=== PATIENT | male | born 1960 | race Hispanic/Latino ===

== ENCOUNTER 2022-12-19 06:39 | Inpatient (IN) | payer MEDICAID, SELFPAY ==
[2022-12-19] VITALS (7 sets, daily range): BP systolic 147–168; BP diastolic 79–88; PULSE 71–94; RESP 14–18; TEMP 36.2–37.1; O2SAT 94–98; BMI 29.2; BMI 27.6
--- NOTE | 2022-12-19 07:15 | CT_ITS ---
STUDY: CT ABDOMEN AND PELVIS WITH CONTRAST REASON FOR EXAM: Male, 62 years old. Abdominal pain. Difficulty with urination. RADIATION DOSAGE (If Supplied By Facility): CTDIvol = ( 14.61 ) mGy, DLP = ( 1025.83 ) mGycm TECHNIQUE: Transaxial images were obtained from the dome of the diaphragm to the symphysis pubis without oral contrast. IV 100mL Isovue-370 was administered. Sagittal and coronal images were reconstructed. Individualized dose optimization techniques were used for this CT. COMPARISON: None. FINDINGS: Minimal degree of bibasilar atelectasis. The visualized portions of the heart are within normal limits. There is a 3.7 cm x 3.5 cm wedge-shaped area of enhancement in the posterior lateral aspect of the right lobe of the liver. A similar appearing abnormality is seen in the inferior lateral portion of the liver as well as in the most inferior portion. Correlation with the ultrasound is recommended for further evaluation. Tiny cyst in the anterior aspect of the left lobe of the liver. Normal gallbladder and extrahepatic biliary system. Normal spleen. Normal pancreas. Normal bilateral adrenal glands. Normal right kidney. Normal left kidney. Normal visualized stomach. Normal small intestine. There is diverticulosis, with thickening of the colon wall, and pericolonic inflammation changes consistent with acute diverticulitis. There is a 1.9 cm x 2 cm circumscribed fluid collection in the mesenteric side of the sigmoid mesentery. This may represent a walled off fluid collection/abscess. The appendix is visualized and appears normal. There is scattered atherosclerotic calcification of the abdominal aorta, without a demonstrated aneurysm. Normal inferior vena cava. Normal retroperitoneum. Diffuse bladder wall thickening. Heterogeneous enlargement of the prostate with indentation of the bladder base. The prostate measures 4.6 cm x 5.5 cm. Bilateral inguinal hernias containing fat more prominent on the left side. There are degenerative changes of the visualized lumbar spine. CT/Abdomen/Pelvis W IV Cont ONLY IMPRESSION: Enhancing lesions in the right lobe of the liver as described. Correlation with ultrasound is recommended. Sigmoid diverticulitis with the walled off fluid collection/abscess along the mesenteric aspect of the sigmoid mesentery. Inflammatory changes are seen in the pelvis. Diffuse thickening of the bladder wall. Prostatic enlargement with indentation of the bladder base. Bilateral inguinal hernias more prominent on the left side. Electronically Signed: Tai Barbosa MD at 8:51 EDT ,
--- NOTE | 2022-12-19 07:16 | EDS_ITS ---
HPI HPI - GI History of Present Illness Chief Complaint: Abd Pain Informant: patient and friend Narrative Narrative: History is through patient and through an cyber software engineer who is a friend of his and who he is happy having do the interpretation. Patient is overall healthy. He is on no meds. He has no allergies. He has no prior surgeries. It sounds like since Friday he has had some problems moving the bowels and problems urinating. Is not clear exactly which one started. He has some discomfort or pressure down in the pelvis. But no nausea or vomiting and he still able to eat. He is urinating but is just small amounts. It did burn somewhat but burned or hurt inside not outside. No discharge. He thinks he had a fever last night subjectively but was not able to measure it. He has never had this before. No history of diverticulitis. No traumas. No known exposures. PFSH PFS Medical History no medical history Home Medications NK 12/19/22 [History Last Taken Unknown] Allergy/AdvReac Type Severity Reaction Status Date / Time No Known Allergies Allergy Verified 12/19/22 06:44 Social History Smoking Status: Never smoker ROS ROS ED ROS Narrative A complete review of systems was performed and is negative except as documented in the history of present illness. Some specific details below. Constitutional: No recent measured fever but he did feel feverish last night. EYE: No visual complaints or pain. ENT: No difficulty swallowing. No swelling. No pain. No GERD. CV: No chest pain or palpitations. Respiratory: No dyspnea. No hemoptysis. No difficulty taking breaths. GI: Please see history of present illness. : Some dysuria and some difficulty passing urine. But he has never had this before. He does not have nighttime urination normally. Musculoskeletal: No recent trauma. No pains. Skin: No rash. Nondiaphoretic. Neuro: No weakness or numbness. Endocrine: No polyuria or polydipsia. EXAM Physical Exam Narrative Exam Narrative: CONSTITUTIONAL: Patient is nontoxic in appearance. The patient looks comfortable. HEENT: No notable trauma. Mucous membranes are still moist. No indication of pain with swallowing. EYES: No conjunctival injection. No proptosis. CARDIOVASCULAR: Regular rate. Regular rhythm. No notable murmur. No JVD. RESPIRATORY: No respiratory distress. Breathing is unlabored. No wheezes. No rhonchi. No rales. No pain with a deep breath. GASTROINTESTINAL: Not distended. Bowel sounds are normal. He feels some pressure with palpation of the lower abdomen. I cannot locate this left or right. But there is no rebound or guarding. I do not feel necessarily an enl arged bladder on exam. GENITOURINARY: No tenderness over the bladder. No CVA tenderness is felt on either side. MUSCULOSKELETAL: Atraumatic. No peripheral edema. No cord. No tenderness along the deep venous system. No asymmetry. NEUROLOGICAL: Patient is alert and appropriate. No focal deficit noted. SKIN: No noted rashes. No diaphoresis. PSYCHIATRIC: Patient is calm. Mood is appropriate. Const Vital Signs: 12/19/22 06:41 Temperature 97.1 F L Temperature Source Temporal Pulse Rate 94 Respiratory Rate 18 Blood Pressure 168/85 H Blood Pressure Mean 112 Pulse Ox 98 Oxygen Delivery Method Room Air MDM MDM MDM Narrative Medical decision making narrative: Patient could have urinary retention. But this could also represent UTI or intra-abdominal infection such as diverticulitis. I am concerned with his feeling of being feverish last night. I will do comprehensive work-up including blood work urine and a CT. This will look for kidney stones diverticulitis and large bladder or other findings. Patient CBC shows no white count at 17.9. But hemoglobin and platelets are normal. Patient's electrolytes showed minimally low sodium otherwise overall normal. Glucose was just slightly up at 117 that can followed. Patient's urinalysis shows no sign of infection. My independent interpretation of the patient's CT of the abdomen and pelvis with IV contrast shows some inflammatory changes down the lobe mostly centered around the sigmoid area mostly consistent with diverticulitis. There are multiple air- filled diverticula but no definite perforation. Question small abscess. Bladder does not look enlarged. Final reading of his CT does show a 1.9 x 2 cm abscess more on the mesenteric side. I discussed the case with surgeon, Dr. Alvarado. He came down and saw the patient. Patient is given Zosyn here. With his significant inflammation, high white count, abscess he will be brought in the hospital for treatment. This area is small and not in a great place for percutaneous drainage. Hopefully he will respond to antibiotics. I explained this to the patient again through the cyber software engineer. I also printed out a discharge instruction sheet regarding diverticulitis so he can read this. I explained that this is not the full description of his illness but does have some similar features. Lab Data Attestation: I reviewed the patient's lab results. Labs: Laboratory Results - last 24 hr 12/19/22 12/19/22 06:55 07:30 WBC 17.9 H RBC 4.87 Hgb 15.9 Hct 46.5 MCV 95.5 H MCH 32.6 H MCHC 34.2 RDW Std Deviation 42.5 RDW Coeff of Larissa 12.0 Plt Count 346 MPV 10.3 Immature Gran % (Auto) 0.600 Neut % (Auto) 75.6 H Lymph % (Auto) 13.5 L [place] % (Auto) 9.5 Eos % (Auto) 0.5 Baso % (Auto) 0.3 Absolute Neuts (auto) 13.5 H Absolute Lymphs (auto) 2.42 Nucleated RBC % 0 Differential Comment COMMENT Diff Path Review May foll Sodium 135 L Potassium 4.1 Chloride 105 Carbon Dioxide 26.0 Anion Gap 4 L BUN 12 Creatinine 0.76 Estim Creat Clear Calc 94.22 Est GFR (MDRD) Af Amer 135 Est GFR (MDRD) Non-Af 111 BUN/Creatinine Ratio 15.9 Glucose 117 H Calcium 9.1 Urine Color Yellow Urine Clarity Clear Urine pH 6.0 Ur Specific [place] 1.015 Urine Protein 15 H Urine Glucose (UA) Normal Urine Ketones Negative Urine Occult Blood Negative Urine Nitrite Negative Urine Bilirubin Negative Urine Urobilinogen Normal Ur Leukocyte Esterase 25 H Urine RBC 0 SEEN Urine WBC 0 SEEN Ur Squamous Epith Cells 0 SEEN Urine Bacteria 0 SEEN Urine Mucus 0 SEEN Radiography Diagnostic Testing: Clinical Impression(s) from Imaging Studies Abdomen/Pelvis CT 12/19/22 07:15 IMPRESSION: Enhancing lesions in the right lobe of the liver as described. Correlation with ultrasound is recommended. Sigmoid diverticulitis with the walled off fluid collection/abscess along the mesenteric aspect of the sigmoid mesentery. Inflammatory changes are seen in the pelvis. Diffuse thickening of the bladder wall. Prostatic enlargement with indentation of the bladder base. Bilateral inguinal hernias more prominent on the left side. Electronically Signed: Tai Barbosa MD at 8:51 EDT , Discharge Plan Dx/Rx/DC Orders Clinical Impression: Diverticulitis, Leukocytosis, Colonic diverticular abscess Disposition Disposition: Acute Care Hospital [facility]
[2022-12-19] MEDS: 0.9% Normal Saline (1000mL) 500 ML 1000 ML IV (07:37)
[2022-12-19 07:41] LABS: Bacteria 0 SEEN /hpf (None Seen); Mucous, Urine 0 SEEN /hpf (<or=2+); Red Blood Cells-Urine 0 SEEN /hpf (0-5); Squamous Epithelial Cells - UA 0 SEEN /hpf (0-5); White Blood Cells 0 SEEN /hpf (0-5)
[2022-12-19 07:42] LABS: Color, Urine Yellow (Yellow); Glucose, Dipstick Normal (Normal); Ketone-Dipstick Negative (Negative); Leukocyte Esterase-Dipstick 25 /ul (Negative); Nitrite-Dipstick Negative (Negative); Occult Blood-Urine Negative /ul (Negative); Protein-Dipstick 15 mg/dl (Negative); Specific Gravity, Urine 1.015 (1.002-1.030); Urine Bilirubin Dipstick Negative (Negative); Urine Clarity Clear (Clear); Urine Urobilinogen Normal (Normal)
[2022-12-19 07:43] LABS: Absolute Lymphocyte Count 2.42 X10^3/uL (0.83-4.51); Absolute Neutrophil Count 13.5 X10^3/uL (2.0-7.7); Basophil# 0.05 X10^3/uL; Basophil% 0.3 % (0-1); Eosinophil# 0.09 X10^3/uL; Eosinophils% 0.5 % (0-5); Hematocrit 46.5 % (40-54); Hemoglobin 15.9 g/dL (13.0-16.5); Lymphocyte # 2.42 X10^3/ul (0.83-4.51); Lymphocyte % 13.5 % (19-41); Mean Corp Hgb Conc 34.2 g/dL (32-36); Mean Corpuscular Hgb 32.6 pg (27.0-32.0); Mean Corpuscular Volume 95.5 fL (80-94); Mean Platelet Vol. 10.3 fl (6.2-12.0); Monocyte% 9.5 % (0-10); NRBC Flagged by Analyzer 0 % (0-5); Neutrophil # 13.53 X10^3/uL (2.7-7.7); Neutrophil % 75.6 % (47-70); POSITIVE DIFFERENTIAL YES; Platelet Count 346 K/mm3 (150-450); RBC Distribution Width SD 42.5 fl (35.1-43.9); Red Blood Count 4.87 M/mm3 (4.6-6.2); White Blood Count 17.9 K/mm3 (4.4-11.0)
[2022-12-19 07:54] LABS: Differential Indicated SCAN CRITERIA MET
[2022-12-19 07:58] LABS: Anion Gap 4 (5-15); BUN 12 mg/dL (7-18); BUN/Creat Ratio 15.9 RATIO (10-20); Calcium,Total 9.1 mg/dL (8.5-10.1); Chloride 105 mmol/L (98-107); Creatinine, Serum 0.76 mg/dL (0.70-1.30); EST Glomerular Filtration Rate 111 mL/min (>60); Est Glom Filt Rate - Afr Amer 135 mL/min (>60); Estimated Creatinine Clearance 94.22 ml/min; Glucose 117 mg/dL (74-106); Potassium 4.1 mmol/L (3.5-5.1); Sodium Level 135 mmol/L (136-145)
[2022-12-19] MEDS: Piperacil/Tazobactam 4.5 GM in 0.9% Normal Saline (100mL MB+) 100 ML IV (09:34)
--- NOTE | 2022-12-19 09:58 | PCM.HP.STD ---
HPI - General General Date of Admission: 12/19/22 HPI Narrative CEZAR ODONNELL, is a 62, Thai-speaking, M who presents to [facility] with complaints of abdominal pain that began 4 days ago. Patient describes pressure in his lower abdomen. There is then pain with bowel movements and a burning sensation with urination for the last 2 days. He also reports some night sweats. History is provided through interpretation by patient's work welding production supervisor. ED work-up is notable for CBC that demonstrates leukocytosis. CT imaging of the abdomen pelvis shows a 2 cm fluid collection along the mesenteric side of the colon consistent with perforated cute diverticulitis. Patient denies any prior diagnoses. He has never had a colonoscopy. He denies any family history of GI related illnesses and specifically denies a history of colon cancer. [facility] Medical History Chest pain Non-smoker Medical History no medical history Home Medications NK 12/19/22 [History Last Taken Unknown] Allergy/AdvReac Type Severity Reaction Status Date / Time No Known Allergies Allergy Verified 12/19/22 06:44 Surgical History (Updated 12/19/22 @ 13:34 by Duyen Garcia) History of coronary artery stent placement Social History Smoking Status: Never smoker Vital Signs Vital Signs Vital Signs: 12/19/22 06:41 Temperature 97.1 F L Temperature Source Temporal Pulse Rate 94 Respiratory Rate 18 Blood Pressure 168/85 H Blood Pressure Mean 112 Pulse Ox 98 Oxygen Delivery Method Room Air Weight Weight: 186 lb 8.177 oz Body Mass Index (BMI) 29.2 Physical Exam Const alert, oriented x3 and no apparent distress General Appearance: cooperative Resp normal respiratory effort GI GI Narrative: No scars, nondistended, soft, suprapubic tenderness reported Results Lab / Micro Data 12/19/22 07:30 12/19/22 07:30 Labs: Laboratory Results - last 24 hr 12/19/22 06:55: Urine Color Yellow, Urine Clarity Clear, Urine pH 6.0, Ur Specific [address] 1.015, Urine Protein 15 H, Urine Glucose (UA) Normal, Urine Ketones Negative, Urine Occult Blood Negative, Urine Nitrite Negative, Urine Bilirubin Negative, Urine Urobilinogen Normal, Ur Leukocyte Esterase 25 H, Urine RBC 0 SEEN, Urine WBC 0 SEEN, Ur Squamous Epith Cells 0 SEEN, Urine Bacteria 0 SEEN, Urine Mucus 0 SEEN 12/19/22 07:30: WBC 17.9 H, RBC 4.87, Hgb 15.9, Hct 46.5, MCV 95.5 H, MCH 32.6 H, MCHC 34.2, RDW Std Deviation 42.5, RDW Coeff of Larissa 12.0, Plt Count 346, MPV 10.3, Immature Gran % (Auto) 0.600, Neut % (Auto) 75.6 H, Lymph % (Auto) 13.5 L, [place] % (Auto) 9.5, Eos % (Auto) 0.5, Baso % (Auto) 0.3, Absolute Neuts (auto) 13.5 H, Absolute Lymphs (auto) 2.42, Nucleated RBC % 0, Differential Comment COMMENT, Diff Path Review June foll, Sodium 135 L, Potassium 4.1, Chloride 105, Carbon Dioxide 26.0, Anion Gap 4 L, BUN 12, Creatinine 0.76, Estim Creat Clear Calc 94.22, Est GFR (MDRD) Af Amer 135, Est GFR (MDRD) Non-Af 111, BUN/Creatinine Ratio 15.9, Glucose 117 H, Calcium 9.1 Radiology Impression Abdomen/Pelvis CT 12/19/22 07:15 IMPRESSION: Enhancing lesions in the right lobe of the liver as described. Correlation with ultrasound is recommended. Sigmoid diverticulitis with the walled off fluid collection/abscess along the mesenteric aspect of the sigmoid mesentery. Inflammatory changes are seen in the pelvis. Diffuse thickening of the bladder wall. Prostatic enlargement with indentation of the bladder base. Bilateral inguinal hernias more prominent on the left side. Electronically Signed: Tai Barbosa MD at 8:51 EDT , Assessment & Plan Assessment/Plan (1) Colonic diverticular abscess: PLAN: This is a 62-year-old male, with no prior medical history, who presents with signs and symptoms of acute complicated diverticulitis with a 2 cm pericolonic abscess. While he is tender on exam, he is not demonstrating any signs of peritonitis. His vitals remain within normal limits. Through his clarifier operator helper I have shared that I would recommend pursuing a conservative course of management and recommended bowel rest with IV antibiotic therapy specifically. I also shared that we would begin to advance his diet once his pain and white blood cell count improved. I shared that there may be an indication to proceed with repeat imaging. I also shared that if he were to fail conservative management he would require emergency surgery and a Redd's procedure. Ernestine Blevins expressed understanding of this information and denied any further questions. ? Admit to to MedSur floor ? N.p.o. ? IV fluids ? Empiric IV antibiotic coverage ? Trend abdominal exam and CBC Charges/Coding Visit Charges Inpatient E&M: 33849 Init Hosp L2
[2022-12-19] MEDS: 0.9% Normal Saline (1000mL) 1,000 ML 125 ML IV (13:57)
[2022-12-19] MEDS: Ondansetron 4 MG/2 ML Vial IV (13:57)
[2022-12-19] MEDS: HYDROmorphone 0.5 MG/0.5 ML SYRINGE IV (13:58)
[2022-12-19 14:01] LABS: Pathologist Review Reviewed
[2022-12-19] MEDS: Piperacil/Tazobactam 3.375 GM in 0.9% Normal Saline (50mL MB+) 50 ML IV ×2 (15:17→22:01)
[2022-12-20] MEDS: 0.9% Normal Saline (1000mL) 1,000 ML 125 ML IV ×3 (04:52→20:19)
[2022-12-20 04:54] VITALS: BP 128/80; PULSE 81; RESP 16; TEMP 37.2; O2SAT 97
[2022-12-20] MEDS: Piperacil/Tazobactam 3.375 GM in 0.9% Normal Saline (50mL MB+) 50 ML IV ×3 (05:45→20:19)
[2022-12-20] MEDS: 0.9% Normal Saline (250mL Bag) 250 ML 15 ML IV (06:27)
[2022-12-20 07:11] LABS: Absolute Lymphocyte Count 2.61 X10^3/uL (0.83-4.51); Absolute Neutrophil Count 11.1 X10^3/uL (2.0-7.7); Basophil# 0.05 X10^3/uL; Basophil% 0.3 % (0-1); Eosinophil# 0.08 X10^3/uL; Eosinophils% 0.5 % (0-5); Hematocrit 45.6 % (40-54); Hemoglobin 14.9 g/dL (13.0-16.5); Lymphocyte # 2.61 X10^3/ul (0.83-4.51); Lymphocyte % 16.8 % (19-41); Mean Corp Hgb Conc 32.7 g/dL (32-36); Mean Corpuscular Hgb 32.2 pg (27.0-32.0); Mean Corpuscular Volume 98.5 fL (80-94); Mean Platelet Vol. 10.9 fl (6.2-12.0); Monocyte# 1.65 X10^3/uL; Monocyte% 10.6 % (0-10); NRBC Flagged by Analyzer 0 % (0-5); Neutrophil # 11.07 X10^3/uL (2.7-7.7); Neutrophil % 71.2 % (47-70); POSITIVE DIFFERENTIAL YES; Platelet Count 344 K/mm3 (150-450); RBC Distribution Width CV 12.1 % (11.6-14.6); Red Blood Count 4.63 M/mm3 (4.6-6.2); White Blood Count 15.6 K/mm3 (4.4-11.0)
[2022-12-20 07:26] LABS: Differential Indicated SCAN CRITERIA MET
[2022-12-20 07:37] LABS: Anion Gap 7 (5-15); BUN 14 mg/dL (7-18); BUN/Creat Ratio 20.8 RATIO (10-20); Calcium,Total 8.5 mg/dL (8.5-10.1); Chloride 109 mmol/L (98-107); Creatinine, Serum 0.67 mg/dL (0.70-1.30); EST Glomerular Filtration Rate 127 mL/min (>60); Est Glom Filt Rate - Afr Amer 154 mL/min (>60); Estimated Creatinine Clearance 106.88 ml/min; Glucose 90 mg/dL (74-106); Magnesium 2.2 mg/dL (1.6-2.6); Phosphorus 3.2 mg/dL (2.5-4.9); Potassium 3.8 mmol/L (3.5-5.1); Sodium Level 139 mmol/L (136-145)
--- NOTE | 2022-12-20 08:17 | PN.SURG_ITS ---
Subjective Subjective Patient seen and examined during AM rounds as well as in the afternoon. He reports that he is feeling better. He states that he has an appetite. He remarks of some persistent discomfort with urination. He has not had a bowel movement today. In the afternoon he reports that he is tolerating a diet without difficulty. Objective Data Objective Data Vital Signs: Vital Signs Temp Pulse Resp BP Pulse Ox O2 Del Method 98.9 F 81 16 128/80 H 97 Room Air 12/20/22 04:54 12/20/22 04:54 12/20/22 04:54 12/20/22 04:54 12/20/22 04:54 12/20/22 04:54 Oxygen Delivery Method Room Air Weight: 176 lb 5.917 oz Body Mass Index (BMI) 27.6 Intake & Output: Intake and Output for Last 24 Hours 12/18/22 12/19/22 12/20/22 23:59 23:59 23:59 Intake Total 2106 50.25 / 50.25 Balance 2106 50.25 / 50.25 Lab / Micro Data 12/20/22 05:25 12/20/22 05:25 Labs: Laboratory Results - last 24 hr 12/19/22 07:30: Differential Comment COMMENT, Diff Path Review Reviewed 12/20/22 05:25: WBC 15.6 H, RBC 4.63, Hgb 14.9, Hct 45.6, MCV 98.5 H, MCH 32.2 H , MCHC 32.7, RDW Std Deviation 44.0 H, RDW Coeff of Larissa 12.1, Plt Count 344, MPV 10.9, Immature Gran % (Auto) 0.600, Neut % (Auto) 71.2 H, Lymph % (Auto) 16.8 L, [place] % (Auto) 10.6 H, Eos % (Auto) 0.5, Baso % (Auto) 0.3, Absolute Neuts (auto) 11.1 H, Absolute Lymphs (auto) 2.61, Nucleated RBC % 0, Sodium 139, Potassium 3.8, Chloride 109 H, Carbon Dioxide 23.0, Anion Gap 7, BUN 14, Creatinine 0.67 L , Estim Creat Clear Calc 106.88, Est GFR (MDRD) Af Amer 154, Est GFR (MDRD) Non- Af 127, BUN/Creatinine Ratio 20.8 H, Glucose 90, Calcium 8.5, Phosphorus 3.2, Magnesium 2.2 Radiography Diagnostic Testing: Radiology Impression Abdomen/Pelvis CT 12/19/22 07:15 IMPRESSION: Enhancing lesions in the right lobe of the liver as described. Correlation with ultrasound is recommended. Sigmoid diverticulitis with the walled off fluid collection/abscess along the mesenteric aspect of the sigmoid mesentery. Inflammatory changes are seen in the pelvis. Diffuse thickening of the bladder wall. Prostatic enlargement with indentation of the bladder base. Bilateral inguinal hernias more prominent on the left side. Electronically Signed: Tai Barbosa MD at 8:51 EDT , Physical Exam Const oriented x3 and no apparent distress Resp normal respiratory effort GI GI Narrative: Nondistended, soft, minimally tender to palpation in the left lower quadrant and suprapubic positions Assessment & Plan Assessment/Plan (1) Colonic diverticular abscess: PLAN: This is a 62-year-old male, with no prior medical history, who presents with signs and symptoms of acute complicated diverticulitis with a 2 cm pericolonic abscess. Hospital day 2 he appears to be responding well to conservative measures with decreased abdominal discomfort and is now tolerating a diet. Clinically too he has had some decrease of his white blood cell count from 17.9-15.6 today. Would plan to continue IV antibiotic therapy, but given patient's appetite we will plan to initiate a diet. ? Clear liquid diet and advance as tolerated to transitional ? IV fluids ? Empiric IV antibiotic coverage ? Trend abdominal exam and CBC repeat in a.m.
[2022-12-20 08:30] LABS: Differential Comment SCANNED
[2022-12-20 09:46] VITALS: BP 131/73; PULSE 75; RESP 16; TEMP 36.8; O2SAT 94
[2022-12-20 16:00] VITALS: BP 138/89; PULSE 80; RESP 16; TEMP 36.7; O2SAT 96
[2022-12-20] MEDS: Ibuprofen 400 MG Tablet PO (17:47)
[2022-12-20] MEDS: Ondansetron 4 MG/2 ML Vial IV (17:47)
[2022-12-20] MEDS: Ensure Clear 120 ML Liquid PO (17:50)
[2022-12-20 20:24] VITALS: BP 140/80; PULSE 88; RESP 16; TEMP 36.8; O2SAT 97
[2022-12-21] MEDS: 0.9% Normal Saline (1000mL) 1,000 ML 125 ML IV (04:14)
[2022-12-21] MEDS: Piperacil/Tazobactam 3.375 GM in 0.9% Normal Saline (50mL MB+) 50 ML IV ×3 (04:14→22:44)
[2022-12-21 04:19] VITALS: BP 138/82; PULSE 82; RESP 16; TEMP 36.6; O2SAT 98
[2022-12-21 06:45] LABS: Absolute Neutrophil Count 10.4 X10^3/uL (2.0-7.7); Basophil# 0.05 X10^3/uL; Basophil% 0.3 % (0-1); Eosinophil# 0.17 X10^3/uL; Eosinophils% 1.2 % (0-5); Hematocrit 42.6 % (40-54); Hemoglobin 14.1 g/dL (13.0-16.5); Lymphocyte % 15.6 % (19-41); Mean Corp Hgb Conc 33.1 g/dL (32-36); Mean Corpuscular Hgb 32.1 pg (27.0-32.0); Mean Platelet Vol. 11.2 fl (6.2-12.0); Monocyte% 12.2 % (0-10); NRBC Flagged by Analyzer 0 % (0-5); Neutrophil % 70.3 % (47-70); POSITIVE DIFFERENTIAL YES; Platelet Count 317 K/mm3 (150-450); RBC Distribution Width SD 43.1 fl (35.1-43.9); Red Blood Count 4.39 M/mm3 (4.6-6.2); White Blood Count 14.8 K/mm3 (4.4-11.0)
[2022-12-21 07:05] LABS: Differential Indicated SCAN CRITERIA MET
[2022-12-21 07:11] LABS: Anion Gap 5 (5-15); BUN 7 mg/dL (7-18); BUN/Creat Ratio 11.1 RATIO (10-20); Calcium,Total 8.2 mg/dL (8.5-10.1); Chloride 112 mmol/L (98-107); Creatinine, Serum 0.63 mg/dL (0.70-1.30); EST Glomerular Filtration Rate 137 mL/min (>60); Est Glom Filt Rate - Afr Amer 166 mL/min (>60); Estimated Creatinine Clearance 113.66 ml/min; Glucose 112 mg/dL (74-106); Magnesium 2.2 mg/dL (1.6-2.6); Phosphorus 2.8 mg/dL (2.5-4.9); Potassium 3.8 mmol/L (3.5-5.1); Sodium Level 141 mmol/L (136-145)
[2022-12-21 07:17] LABS: Differential Comment SCANNED
[2022-12-21] MEDS: Ensure Clear 120 ML Liquid PO (08:04)
--- NOTE | 2022-12-21 08:52 | PN.SURG_ITS ---
Subjective Subjective Patient reports some mild lower abdominal pain. He thinks he needs to go to the bathroom and he is going to attempt to have a bowel movement. He denies any nausea or vomiting and tolerated full liquids yesterday. Objective Data Objective Data Vital Signs: Vital Signs Temp Pulse Resp BP Pulse Ox O2 Del Method 97.8 F 82 16 138/82 H 98 Room Air 12/21/22 04:19 12/21/22 04:19 12/21/22 04:19 12/21/22 04:19 12/21/22 04:19 12/21/22 04:19 Oxygen Delivery Method Room Air Weight: 176 lb 5.917 oz Body Mass Index (BMI) 27.6 Intake & Output: Intake and Output for Last 24 Hours 12/19/22 12/20/22 12/21/22 23:59 23:59 23:59 Intake Total 2106 2323.58 / 2323.58 1150.08 / 1150.08 Balance 2106 2323.58 / 2323.58 1150.08 / 1150.08 Lab / Micro Data 12/21/22 05:25 12/21/22 05:25 Labs: Laboratory Results - last 24 hr 12/21/22 05:25: WBC 14.8 H, RBC 4.39 L, Hgb 14.1, Hct 42.6, MCV 97.0 H, MCH 32.1 H, MCHC 33.1, RDW Std Deviation 43.1, RDW Coeff of Larissa 12.0, Plt Count 317, MPV 11.2, Immature Gran % (Auto) 0.400, Neut % (Auto) 70.3 H, Lymph % (Auto) 15.6 L, [place] % (Auto) 12.2 H, Eos % (Auto) 1.2, Baso % (Auto) 0.3, Absolute Neuts (auto) 10.4 H, Absolute Lymphs (auto) 2.30, Nucleated RBC % 0, Differential Comment SCANNED, Diff Path Review June, Sodium 141, Potassium 3.8, Chloride 112 H, Carbon Dioxide 24.0, Anion Gap 5, BUN 7, Creatinine 0.63 L, Estim Creat Clear Calc 113.66, Est GFR (MDRD) Af Amer 166, Est GFR (MDRD) Non-Af 137, BUN/Creatinine Ratio 11.1, Glucose 112 H, Calcium 8.2 L, Phosphorus 2.8, Magnesium 2.2 Physical Exam Const oriented x3 and no apparent distress Resp normal respiratory effort GI soft to palpation Palpation: tender suprapubic Assessment & Plan Assessment/Plan (1) Colonic diverticular abscess: PLAN: Patient has diverticulitis with abscess. His white count is still elevated today. He tolerated full liquids and I will leave him on a full liquid diet until his white count normalizes. Recheck labs in the morning and continue IV antibiotics. Decrease IV fluids. Garrett Harris MD Pager: [facility] [address] [place] [address], [address] [place] [address] Office:
[2022-12-21 09:00] VITALS: BP 142/86; PULSE 70; RESP 18; TEMP 36.8; O2SAT 98
[2022-12-21] MEDS: Influenza Virus Vac Quad 23-24 60 MCG/0.5 ML SYRINGE IM (10:12)
--- NOTE | 2022-12-21 13:30 | CASEMGMT ---
GERSON PIZARRO IT SYSTEMS MANAGER CM to room to meet with patient for initial transition planning/care coordination assessment. GERSON PIZARRO introduced self and role at [facility].? Pt voices understanding and consents to assessment at this time.? Pt resting in bed in no distress at this time.? Pt is A/O at this time and answers all questions appropriately.?? Care providers, pharmacy, and demographics verified/updated at this time. Pt's primary language is Israeli, but pt able to communicate well w/this GERSON PIZARRO and the following info obtained. PCP: Dr Alexa Uribe Specialists: none Preferred Pharmacy: [facility]. Pt made aware they are not open on Sundays and will need to choose another pharmacy for any new Rx's to be sent to tomorrow if he is d/c'd tomorrow. He states will check with his friend, Kush, who will be picking him up at discharge to see who he recommends. Pt to tell nursing once he decides. Insurance: [facility] Prescription Benefit:? yes LNOK: . Only friend, Kush, is listed as contacts. Pt states he would know how to reach his , if needed. Living Arrangements: Lives w/his and children in [place]. Pt travels for work. Independent. Transportation: Friend, Uksh, @ discharge. DME: ? Denies using any DME and denies needs.? Pt wishes to discharge w/friend and states has no concerns with going home at time of discharge. He does request for a work release and would like to know when he can return to work once he is discharge. educational manager, Carisa, brigida. ? Pt voices no further concerns/needs at this time.? PLAN: ?Discharge w/friend @ d/c Olga FLYNNN GERSON PIZARRO
[2022-12-21 15:06] VITALS: BP 160/78; PULSE 68; RESP 18; TEMP 36.9; O2SAT 98
[2022-12-21 20:15] VITALS: BP 142/94; PULSE 72; RESP 16; TEMP 36.8; O2SAT 98
[2022-12-21] MEDS: 0.9% Normal Saline (1000mL) 1,000 ML 40 ML IV (20:18)
[2022-12-22 02:15] VITALS: BP 139/86; PULSE 63; RESP 16; TEMP 36.9; O2SAT 97
[2022-12-22] MEDS: Ibuprofen 400 MG Tablet PO (05:42)
[2022-12-22] MEDS: Piperacil/Tazobactam 3.375 GM in 0.9% Normal Saline (50mL MB+) 50 ML IV (05:43)
[2022-12-22 07:59] LABS: Absolute Lymphocyte Count 2.64 X10^3/uL (0.83-4.51); Absolute Neutrophil Count 8.1 X10^3/uL (2.0-7.7); Basophil# 0.05 X10^3/uL; Basophil% 0.4 % (0-1); Eosinophil# 0.25 X10^3/uL; Hematocrit 43.9 % (40-54); Hemoglobin 14.4 g/dL (13.0-16.5); Lymphocyte # 2.64 X10^3/ul (0.83-4.51); Lymphocyte % 21.3 % (19-41); Mean Corp Hgb Conc 32.8 g/dL (32-36); Mean Corpuscular Hgb 31.6 pg (27.0-32.0); Mean Corpuscular Volume 96.5 fL (80-94); Mean Platelet Vol. 11.4 fl (6.2-12.0); Monocyte# 1.29 X10^3/uL; Monocyte% 10.4 % (0-10); NRBC Flagged by Analyzer 0 % (0-5); Neutrophil % 65.4 % (47-70); Platelet Count 344 K/mm3 (150-450); RBC Distribution Width CV 11.9 % (11.6-14.6); RBC Distribution Width SD 42.4 fl (35.1-43.9); Red Blood Count 4.55 M/mm3 (4.6-6.2); White Blood Count 12.4 K/mm3 (4.4-11.0)
--- NOTE | 2022-12-22 08:04 | PCM.PN.SRG ---
Subjective Subjective Patient reports is having no discomfort today. He reports he is passing flatus and tolerated full's yesterday with no pain. Objective Data Objective Data Vital Signs: Vital Signs Temp Pulse Resp BP Pulse Ox O2 Del Method 98.4 F 63 16 139/86 H 97 Room Air 12/22/22 02:15 12/22/22 02:15 12/22/22 02:15 12/22/22 02:15 12/22/22 02:15 12/22/22 03:00 Oxygen Delivery Method Room Air Weight: 176 lb 5.917 oz Body Mass Index (BMI) 27.6 Intake & Output: Intake and Output for Last 24 Hours 12/20/22 12/21/22 12/22/22 23:59 23:59 22:59 Intake Total 2323.58 / 2323.58 3212.91 / 3212.91 200.0 / 200.0 Balance 2323.58 / 2323.58 3212.91 / 3212.91 200.0 / 200.0 Lab / Micro Data 12/22/22 05:40 12/21/22 05:25 Labs: Laboratory Results - last 24 hr 12/22/22 05:40: WBC 12.4 H, RBC 4.55 L, Hgb 14.4, Hct 43.9, MCV 96.5 H, MCH 31.6, MCHC 32.8, RDW Std Deviation 42.4, RDW Coeff of Larissa 11.9, Plt Count 344, MPV 11.4, Immature Gran % (Auto) 0.500, Neut % (Auto) 65.4, Lymph % (Auto) 21.3, [place] % (Auto) 10.4 H, Eos % (Auto) 2.0, Baso % (Auto) 0.4, Absolute Neuts (auto) 8.1 H, Absolute Lymphs (auto) 2.64, Nucleated RBC % 0 Physical Exam Const oriented x3 and no apparent distress Resp normal respiratory effort GI normal to inspection, nondistended, normoactive bowel sounds Assessment & Plan Assessment/Plan (1) Colonic diverticular abscess: PLAN: Patient denies any pain and his white count continues to decrease. I will send him home on a low residue diet on oral antibiotics. Garrett Harris MD Pager: [facility] [address] [place] [address], [address] [place] [address] Office:
--- NOTE | 2022-12-22 08:05 | DS.PCM_ITS ---
Providers Date of Admission: 12/20/22 Primary Care Physician: MD VIN ULLOA Reason For Visit: COMPLICATED ACUTE DIVERTICULITIS Diagnosis Discharge Diagnosis (1) Colonic diverticular abscess: Status: Acute Code(s): K57.20 - Diverticulitis of large intestine with perforation and abscess without bleeding Plan: Patient denies any pain and his white count continues to decrease. I will send him home on a low residue diet on oral antibiotics. Garrett Harris MD Pager: [facility] [address] [place] [address], [address] [place] [address] Office: Medications at Discharge Home Medications acetaminophen 500 mg tablet 500 mg PO Q6H PRN PRN Pain Score 1-10 #0 tabs 12/22/22 ciprofloxacin HCl 500 mg tablet (Cipro) 500 mg PO BID 14 days #28 tabs 12/22/22 ibuprofen 400 mg tablet 400 mg PO Q6 #0 tabs 12/22/22 metronidazole 500 mg tablet 500 mg PO Q8H 14 days #42 tabs 12/22/22 Hospital Course Summary of Care Provided Hospital Course: Patient was admitted with diverticulitis with peridiverticular abscess. He was started on IV antibiotics. Once his pain had decreased he was started on clear liquids. Once his pain resolved his diet was advanced and he was discharged home on oral antibiotics. Weight / BMI Weight Weight: 176 lb 5.917 oz Body Mass Index (BMI) 27.6 ABG / Lab / Microbiology Data 12/22/22 05:40 12/21/22 05:25 Laboratory: Laboratory Results - last 24 hr 12/22/22 05:40: WBC 12.4 H, RBC 4.55 L, Hgb 14.4, Hct 43.9, MCV 96.5 H, MCH 31.6, MCHC 32.8, RDW Std Deviation 42.4, RDW Coeff of Larissa 11.9, Plt Count 344, MPV 11.4, Immature Gran % (Auto) 0.500, Neut % (Auto) 65.4, Lymph % (Auto) 21.3, [place] % (Auto) 10.4 H, Eos % (Auto) 2.0, Baso % (Auto) 0.4, Absolute Neuts (auto) 8.1 H, Absolute Lymphs (auto) 2.64, Nucleated RBC % 0 D/C Instructions Discharge Diet: Light diet - advance as tolerated (Low residue diet with no raw vegetables for the first week) Discharge Activity: Return to Normal Activity (As long as there is no abdominal pain) and May Shower Call your doctor if your incision/area has: Increased Pain/ Swelling Call your doctor if you observe: Fever of 101 or Higher and Inability to have a bowel movement Please Follow Up With: Kelvin Alvarado MD When: Please call to schedule 1 week follow up appointment. [phone] Meaningful Use Info Meaningful Use Diagnoses (Choose all that apply): None applicable Discharge Plan Admission Admit Date/Time: 12/20/22 09:12 Attending Provider: Kelvin Alvarado Primary Care Provider: VIN ULLOA MD Discharge Orders/Prescriptions Prescriptions: New acetaminophen 500 mg Tablet 500 mg PO Q6H PRN PRN (Reason: Pain Score 1-10) Qty: 0 0RF ibuprofen 400 mg Tablet 400 mg PO Q6 Qty: 0 0RF ciprofloxacin HCl [Cipro] 500 mg tablet 500 mg PO BID 14 Days Qty: 28 0RF metronidazole 500 mg tablet 500 mg PO Q8H 14 Days Qty: 42 0RF Referrals / Follow Up: VIN ULLOA MD [Other] NOT,DEFINED [Non-Staff] - Disposition Disposition (needs filled in before D/C Order can be placed): Home, Self Care
[2022-12-22 08:14] VITALS: BP 156/96; PULSE 67; RESP 16; TEMP 37; O2SAT 98
[2022-12-22 08:33] LABS: Anion Gap 8 (5-15); BUN 10 mg/dL (7-18); Calcium,Total 8.7 mg/dL (8.5-10.1); Chloride 110 mmol/L (98-107); Creatinine, Serum 0.62 mg/dL (0.70-1.30); EST Glomerular Filtration Rate 138 mL/min (>60); Est Glom Filt Rate - Afr Amer 167 mL/min (>60); Glucose 97 mg/dL (74-106); Potassium 3.7 mmol/L (3.5-5.1); Sodium Level 140 mmol/L (136-145)
[2022-12-22 12:11] VITALS: BP 160/70; PULSE 77; RESP 18; TEMP 37.2; O2SAT 98
[2022-12-23 08:41] LABS: Pathologist Review Reviewed
[2022-12-24 08:15] LABS: Pathologist Review Reviewed
== END 2022-12-22 12:11 | disposition home or self-care (01) | DRG 244 ==
LOC: ED 09:40 → MS3 12:32
PROVIDERS: Surgery; Admitting Provider Surgery; Emergency Provider Emergency Medicine; Visit Provider Surgery
DX: K57.20 Diverticulitis of large intestine with perforation and abscess without bleeding (principal); D72.829 Elevated white blood cell count, unspecified; Z79.899 Other long term (current) drug therapy
CPT/HCPCS: 36415; 74177; 80048; 81001; 83735; 84100; 85025; 94668; 99252; 99284; J7030; J7050; Q9967; 90686; G0463; J2405